=== PATIENT | male | born 1980 | race Caucasian/White ===

== ENCOUNTER 2019-06-10 10:19 | Emergency (ER) | payer BC ==
[2019-06-10 10:30] VITALS: BP 135/70; PULSE 74
[2019-06-10] MEDS: Tetracaine HCl/PF 0.5% 4 ML Bottle EYELF ONE (11:10)
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
[2019-06-10] MEDS: Dexamethasone/Neomycin/Polymyxin B Ophth Susp 5 ML Bottle EYELF ONE (11:26)
== END 2019-06-10 11:30 | disposition home or self-care (01) ==
LOC: KA.ED 10:19
DX: S05.02XA Injury of conjunctiva and corneal abrasion without foreign body, left eye, initial encounter (principal); X58.XXXA Exposure to other specified factors, initial encounter
CPT/HCPCS: 99283

== ENCOUNTER 2019-09-21 19:12 | Emergency (ER) | payer BC, OTHER ==
[2019-09-21 19:45] VITALS: BP 129/80; PULSE 85
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
== END 2019-09-21 20:20 | disposition home or self-care (01) ==
LOC: KA.ED 19:12
DX: S60.222A Contusion of left hand, initial encounter (principal); X58.XXXA Exposure to other specified factors, initial encounter
CPT/HCPCS: 73130-LT; 99283

== ENCOUNTER 2020-05-02 10:56 | Emergency (ER) | payer OTHER ==
[2020-05-02 11:14] VITALS: BP 130/88; PULSE 83
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
--- NOTE | 2020-05-02 12:16 | CT ---
[id number] CT/CT Head WO IV EXAM: NONCONTRAST HEAD CT INDICATION: HEAD TRAUMA,CONCUSSED,BRIEF LOSS OF CONSCIOUSNESS. COMPARISON: February 11, 2009. DISCUSSION: Scattered scalp soft tissue swelling. The ventricles and sulci are normal in size and configuration. The singh and white matter are normal in attenuation. No mass effect or midline shift. No acute hemorrhage or extra-axial fluid collection. No acute territorial infarct is identified. A limited look at the orbits and paranasal sinuses is unremarkable. IMPRESSION: 1. No evidence of acute intracranial trauma. Cain Meng MD 05/02/20 [id number] Thank you for allowing us to participate in the care of your patient.
== END 2020-05-02 12:30 | disposition home or self-care (01) ==
LOC: KA.ED 10:56
DX: S06.0X1A Concussion with loss of consciousness of 30 minutes or less, initial encounter (principal); S00.03XA Contusion of scalp, initial encounter; M54.2 Cervicalgia; F17.210 Nicotine dependence, cigarettes, uncomplicated; W20.8XXA Other cause of strike by thrown, projected or falling object, initial encounter; Y99.0 Civilian activity done for income or pay
CPT/HCPCS: 70450; 99284-25

== ENCOUNTER 2023-04-25 16:51 | Emergency (ER) | payer OTHER, BC ==
[2023-04-25 16:55] VITALS: BP 127/89; PULSE 94
[2023-04-25] MEDS ORDERED: Diphtheria,Pertussis(Acell),Tetanus Vaccine 0.5 ML Syringe IM ONE (17:10)
[2023-04-25] MEDS ORDERED: Bacitracin Oint 30 GM Tube TOP ONE (17:52)
[2023-04-25] MEDS ORDERED: Bacitracin/Neomycin/Polymyxin B Oint 0.9 GM U/D Packet TOP ONE (17:54)
== END 2023-04-25 18:00 | disposition home or self-care (01) ==
LOC: KA.ED 16:51
DX: S61.317A Laceration without foreign body of left little finger with damage to nail, initial encounter (principal); Z23 Encounter for immunization; W23.1XXA Caught, crushed, jammed, or pinched between stationary objects, initial encounter
CPT/HCPCS: 73140-F4; 90471; 90715; 99283; 99283-25